=== PATIENT | female | born 1990 | race Caucasian/White ===

== ENCOUNTER 2020-04-02 15:55 | Emergency (ER) | payer MEDICAID, SELFPAY ==
[2020-04-02 16:06] VITALS: BP 118/80; PULSE 92; RESP 20; TEMP 36.5; O2SAT 100
[2020-04-02 16:10] VITALS: RESP 16
--- NOTE | 2020-04-02 16:42 | NUR.NOTE ---
Nursing Note: high flow oxygen initiated upon arrival to triage. MD aware and agrees with this.
[2020-04-02 16:48] LABS: Carboxyhemoglobin 8.3 %
[2020-04-02 16:50] LABS: Abs Immature Grans 0.05 10^3/uL (0.0-0.06); Absolute Basophil Count 0.04 10^3/uL (0.0-0.2); Absolute Eosinophil Count 0.06 10^3/uL (0.0-0.7); Absolute Lymphocyte Count 1.48 10^3/uL (1.2-3.4); Absolute Monocyte Count 0.66 10^3/uL (0.1-0.8); Absolute Neutrophil Count 7.33 10^3/uL (1.2-6.7); Basophils % 0.4; Eosinophils % 0.6; HCT 37.4 % (36.0-46.0); HGB 12.5 g/dL (11.2-15.7); Immature Grans % 0.5; Lymphocytes % 15.4; MCH 30.7 pg (27.0-33.0); MCHC 33.4 % (32.0-36.0); MCV 91.9 fL (80-95); MPV 9.2 fL (8.0-11.0); Monocytes % 6.9; Neutrophils % 76.2; Nucleated RBC 0 %; Platelet Count 305 10^3/uL (130-400); RBC 4.07 10^6/uL (3.93-5.22); RDW 12.4 % (11.7-14.6); RDW-SD 41.6 fL; WBC 9.62 10^3/uL (4.4-10.8)
[2020-04-02 17:05] LABS: ALT 18 U/L (14-59); AST 21 U/L (15-37); Albumin 4.2 g/dL (3.4-5.0); Alkaline Phosphatase 61 U/L (46-116); Anion Gap 8.2 mmol/L (3-11); BUN 16 mg/dL (7-18); Bilirubin, Total 0.3 mg/dL (0.2-1.0); CO2 25.8 mmol/L (21.0-32.0); CREATININE 0.94 mg/dL (0.55-1.02); Calcium 9.3 mg/dL (8.5-10.1); Chloride 102 mmol/L (98-107); Glucose 92 mg/dL (74-106); Potassium 3.8 mmol/L (3.5-5.1); Sodium 136 mmol/L (136-145); Total Protein 7.7 g/dL (6.4-8.2)
--- NOTE | 2020-04-02 17:32 | ED.GENADUL_ITS ---
Discharge Plan Disposition Patient Disposition: HOME Condition: Stable Discharge Details Chief Complaint: ChemExpose Clinical Impression: Carbon monoxide exposure Primary Care Provider: [facility] Provider: Alberta Cardona Home Meds and New Rx's Prescriptions: No Action tamoxifen 20 mg tablet 20 mg PO DAILY RF: 0 Discharge Instructions Instructions: Carbon Monoxide Poisoning (ED) Additional Instructions: Follow up with primary care provider in 3-5 days. Return to ED sooner if any worsening or concerns. Increase oral fluids. Please take Tylenol or Ibuprofen with food every 4-6 hours as needed for pain and swelling. Please return to the ED for any chest pain, shortness of breath, return of symptoms or any concerns. Make sure to get plenty of pressure over the next couple of days. Discharge Data Discharge Date/Time-TO BE ENTERED AT DEPARTURE: 04/02/20 17:54 Medical Decision Making 29-year-old female presents to the ER after being exposed to carbon monoxide at her place of work for approximately 5 hours prior to arrival. Patient states the gas company came out and did confirm that it was carbon monoxide leak. She was complaining of eyes burning, nausea, headache and dizziness. Here she did have a carboxyhemoglobin level of 8.3. She was placed on high flow oxygen and her nausea and headache has resolved. She denies any chest pain, shortness of breath or any other complaints. She does have a history of left-sided breast cancer and sent to start radiation next week. She denies any other past medical history. Patient is on high flow oxygen at this time her symptoms have somewhat resolved. She states no more nausea or headache. Labs ordered by provider prior to being brought back to room which include a CBC, CMP and carboxyhemoglobin. Carboxyhemoglobin is 8.3% which is in the moderate range. This does not constitute carbon monoxide poisoning however does indicate exposure. Patient is a non-smoker. At this time I do feel it is safe for her to be discharged home since patient is feeling better after high flow oxygen and her symptoms have subsided. Discuss strict return instructions and instructed to return if any recurrence of symptoms. Instructed to get lots of pressure over the next couple of days. Patient verbalized understanding. HPI General Mode of arrival: ambulatory . Date/Time Provider Initiated Documentation: 04/02/20 16:11 . Limitations to Documentation: no limitations . Information obtained by: patient . HPI Narrative: 29-year-old female presents to the ER after being exposed to carbon monoxide at her place of work for approximately 5 hours prior to arrival. Patient states the gas company came out and did confirm that it was carbon monoxide leak. She was complaining of eyes burning, nausea, headache and dizziness. Here she did have a carboxyhemoglobin level of 8.3. She was placed on high flow oxygen and her nausea and headache has resolved. She denies any chest pain, shortness of breath or any other complaints. She does have a history of left-sided breast cancer and sent to start radiation next week. She denies any other past medical history. Related Data Home Medications Medication Instructions Recorded Confirmed tamoxifen 20 mg PO DAILY 04/02/20 04/02/20 Allergies Allergy/AdvReac Type Severity Reaction Status Date / Time No Known Drug Allergies Allergy Unverified 04/02/20 16:09 General Stated Complaint: ChemExpose DARWIN: 3 Review of Systems Narrative: Constitutional: Negative for weight loss, alert and oriented, well groomed, normal body habitus, appears comfortable. HEENT: Denies trauma, blurry vision, nasal discharge, sore throat, trouble swallowing. Reports headache which is now resolved. Chest: Denies chest pain, palpitations, irregular rhythm, hypertension. Respiratory: Denies Shortness of breath, cough, hemoptysis. GI: Denies abdominal pain, vomiting, diarrhea, constipation. Reports nausea which is now resolved. : Denies dysuria, hematuria, flank pain, rectal bleeding. Neuro: Denies blurry vision, weakness, syncope, headache or facial numbness. Did report eye burning prior to arrival. Hematologic: Denies easy bruising, intolerance to heat or cold, hair loss. [facility] Family History Father Thyroid disorder Grandfather Diabetes Social History Smoking/Tobacco Use Status: Former Tobacco Use Alcohol Intake: current Alcohol Intake frequency: holidays/special occasions only Details: CBD with THC Do you feel safe at home: Yes Do you feel safe in your relationship?: Yes Exam Narrative Exam Narrative: Constitutional: Alert and oriented x3. Appears stated age. Normal body habitus. Head: Normocephalic, no trauma. Eyes: Pupils PERRLA, Red reflex noted, EOM's intact. Eyelids symmetrical without lesions, discharge, or swelling. ENT: Bilateral TM's WNL, External ear normal to inspection, no mastoid TTP, swelling, or erythema, Nasal turbinates WNL, no nasal discharge. Normal dentition, Posterior pharynx WNL, no exudate. Chest: RRR, Normal S1, S2, distal pulses intact. Resp: Lungs clear to auscultation bilaterally, no wheezes, rales, or rhonchi. Musculoskeletal: Normal gait, 5/5 strength to all four extremities. Skin: No suspicious rashes or lesions. Capillary refill less than 2 sec. Neurologic: Cranial nerves II-XII intact. Alert and oriented x 3. DTR's intact. Hematologic/Lymphatic: No ecchymosis, no lymphadenopathy. Course Vital Signs Vital signs: Vital Signs Temperature 36.5 C 04/02/20 16:06 Pulse 92 H 04/02/20 16:06 Respiratory Rate 20 04/02/20 16:06 Blood Pressure 118/80 04/02/20 16:06 Pulse Oximetry 100 04/02/20 16:06 Temperature 36.5 C 04/02/20 16:06 Temperature Source Skin 04/02/20 16:06 Pulse 92 H 04/02/20 16:06 Respiratory Rate 16 04/02/20 16:10 Respiratory Effort Non-Labored 04/02/20 16:10 Respiratory Depth Shallow 04/02/20 16:10 Blood Pressure 118/80 04/02/20 16:06 Blood Pressure Position Sitting 04/02/20 16:06 Pulse Oximetry 100 04/02/20 16:06 Oxygen Delivery Method Room Air 04/02/20 16:06 Oxygen Flow Rate 0 04/02/20 16:06 Pain Level 0 04/02/20 16:06 Lab/Test Results Lab/Test Results: Laboratory Tests Range/Units 04/02/20 04/02/20 04/02/20 16:32 16:32 16:32 WBC (4.4-10.8) 10^3/uL 9.62 RBC (3.93-5.22) 10^6/uL 4.07 Hgb (11.2-15.7) g/dL 12.5 Hct (36.0-46.0) % 37.4 MCV (80-95) fL 91.9 MCH (27.0-33.0) pg 30.7 MCHC (32.0-36.0) % 33.4 RDW (11.7-14.6) % 12.4 Plt Count (130-400) 10^3/uL 305 MPV (8.0-11.0) fL 9.2 Immature Gran % 0.5 Neutrophils % 76.2 Lymphocytes % 15.4 Monocytes % 6.9 Eosinophils % 0.6 Basophils % 0.4 Nucleated RBC % % 0 Absolute Neutrophils (1.2-6.7) 10^3/uL 7.33 H Absolute Lymphocytes (1.2-3.4) 10^3/uL 1.48 Absolute Monocytes (0.1-0.8) 10^3/uL 0.66 Absolute Eosinophils (0.0-0.7) 10^3/uL 0.06 Absolute Basophils (0.0-0.2) 10^3/uL 0.04 Carboxyhemoglobin % % 8.3 Sodium (136-145) mmol/L 136 Potassium (3.5-5.1) mmol/L 3.8 Chloride (98-107) mmol/L 102 Carbon Dioxide (21.0-32.0) mmol/L 25.8 Anion Gap (3-11) mmol/L 8.2 BUN (7-18) mg/dL 16 Creatinine (0.55-1.02) mg/dL 0.94 Estimated GFR/1.73 m2 (mL/min/1.73m2) >= 60.00 Glucose (74-106) mg/dL 92 Calcium (8.5-10.1) mg/dL 9.3 Total Bilirubin (0.2-1.0) mg/dL 0.3 AST (15-37) U/L 21 ALT (14-59) U/L 18 Alkaline Phosphatase (46-116) U/L 61 Total Protein (6.4-8.2) g/dL 7.7 Albumin (3.4-5.0) g/dL 4.2
== END 2020-04-02 17:54 | disposition home or self-care (01) ==
PROVIDERS: Student in an Organized Health Care Education/Training Program; Emergency Provider Registered Nurse Emergency
DX: T58.91XA Toxic effect of carbon monoxide from unspecified source, accidental (unintentional), initial encounter (principal); R11.0 Nausea; R51 Headache; R42 Dizziness and giddiness
CPT/HCPCS: 80053; 82375; 99282; 85025

== ENCOUNTER 2021-05-22 20:50 | Outpatient (REF) | payer MEDICAID, SELFPAY | END 2021-05-22 20:51 | disposition home or self-care (01) | LOC: LBN 20:50 | PROVIDERS: Visit Provider Physician Assistant Medical | DX: R30.0 Dysuria (principal) | CPT/HCPCS: 87086 ==